=== PATIENT | male | born 1960 | race African-American/Black ===

== ENCOUNTER 2016-03-30 11:44 | Emergency (ER) | payer OTHER ==
[~2016-03-30] VITALS: Ht 180.3 cm; Wt 97.0 kg
[~2016-03-30 11:44] MED LIST: GLUCOMETER XX; GLUCOMTESTSTRIPS XX; GLUCTAB PO; OMEP20CA5 PO
[2016-03-30 11:47] VITALS: BP 129/84; PULSE 90; RESP 16; TEMP 98.3; O2SAT 98
[2016-03-30] MEDS ORDERED: METF1000 PO (12:44)
--- NOTE | 2016-03-30 12:51 | PD ---
HPI Chief Complaint: Medication Refill Request Time Seen by Provider: 12:44 Travel History International Travel<30 days: No Contact w/Intl Traveler<30days: No Traveled to known affect area: No History of Present Illness HPI 55-year-old male presents to the emergency room for medication refill of his metformin. Patient states he was diagnosed with diabetes one year ago and given a prescription for metformin which he was taking appropriately at first but then stopped because "sugars were controlled." Patient has been taking his sugars every morning and states they are generally between 120 and 180 but for the past week they have been elevated between 200 and 400. Patient began taking his metformin one week ago after realizing the increase in readings but states it hasn't seemed to help. He believes that is because it is . Prescription in Jul, 2015. [facility] for another 2 days. Patient was hoping he can get medication for the next 2 days until he can get [facility]. Reports polydipsia and polyuria. Denies fever, chills, nausea, vomiting, recent illness, weakness , changes in vision, or abdominal pain. PFSH Past Medical History Arthritis: Yes Autoimmune Disease: Yes Blood Disorders: No Cancer: No Cardiovascular Problems: No High Cholesterol: Yes Chemotherapy: No Diabetes: Yes (borderline) Diminished Hearing: No Endocrine: No Gastrointestinal Disorders: Yes Genitourinary: No Musculoskeletal: Yes Neurologic: No Psychiatric: No Respiratory: Yes Radiation Therapy: No Past Surgical History Abdominal Surgery: Yes (hernia) Other Surgery: Yes (HERNIA REPAIR) Social History Alcohol Use: No Tobacco Use: No Substance Use: No Allergies-Medications (Allergen,Severity, Reaction): Coded Allergies: North Korean Cheese (Verified Allergy, Severe, PT STATES ALLERGY TO CHEESE, 03/30/16) Quetiapine (Verified Adverse Reaction, Mild, penile erection , 03/30/16) Reported Meds & Prescriptions Reported Meds & Active Scripts Active Metformin (Metformin HCl) 1,000 Mg Tab 1,000 Mg PO Q12HR With meals Glucomteststrips 1 Box XX Glucometer 1 Kit XX Glucophage XR 24 HR (Metformin HCl) 500 Mg Tab 500 Mg PO BIDPC 30 Days Reported Prilosec 20 mg (Omeprazole) 20 Mg Capcr 1 Tab PO DAILY Review of Systems Except as stated in HPI: all other systems reviewed are Neg Physical Exam Narrative GENERAL: Well-nourished, well-developed male in no acute distress. Afebrile. Ambulatory. SKIN: Warm and dry. HEAD: Normocephalic. EYES: No scleral icterus. No injection or drainage. NECK: Supple, trachea midline. No JVD or lymphadenopathy. Data Data Last Documented VS Vital Signs Date Time Temp Pulse Resp B/P Pulse Ox O2 Delivery O2 Flow Rate FiO2 03/30/16 11:47 98.3 90 16 129/84 98 Room Air MDM Medical Decision Making Medical Screen Exam Complete: Yes Emergency Medical Condition: Yes Medical Record Reviewed: Yes Differential Diagnosis Hyperglycemia versus uncontrolled diabetes versus DKA versus medication refill Narrative Course 55-year-old male with history of diabetes presents to the emergency room requesting prescription for metformin. He has been noncompliant with metformin in the past. States he cannot get his prescription picked up for another 2 days but his sugars have been extremely high at home for the past week, between 200 and 400. Blood sugar here was 357. Patient is asymptomatic. I spoke to my attending physician, Dr. Arguelles, who recommends restarting metformin. He will be discharged with prescription for metformin and told to follow up as scheduled with his primary care physician in 2 days for reevaluation of chronic blood sugar management. Patient told to return sooner for worsening symptoms. He understands and agrees to this plan. Diagnosis Primary Impression: Hyperglycemia due to type 2 diabetes mellitus Qualified Code: E11.65 - Type 2 diabetes mellitus with hyperglycemia, without long-term current use of insulin Referrals: Primary Care Physician Patient Instructions: Diabetic Hyperglycemia (ED), General Instructions Additional Instructions: Rest and drink plenty of fluids. Take metformin as directed. Follow-up with a primary care physician for better control of chronic diabetes. Return to the emergency room for worsening symptoms. Med/Other Pt SpecificInfo: Prescription(s) given Scripts Metformin 1,000 Mg Tab1,000 Mg PO Q12HR #60 TAB Ref 0 With meals Prov:Vale Arguelles MD 03/30/16 Disposition: 01 DISCHARGE HOME Condition: Stable Coco Cordova Mar 30, 2016 12:51
== END 2016-03-30 13:10 | disposition home or self-care (01) ==
LOC: NEPB 11:44
DX: E11.65 Type 2 diabetes mellitus with hyperglycemia (principal); Z76.0 Encounter for issue of repeat prescription; Z79.84 Long term (current) use of oral hypoglycemic drugs; Z87.39 Personal history of other diseases of the musculoskeletal system and connective tissue; Z86.2 Personal history of diseases of the blood and blood-forming organs and certain disorders involving the immune mechanism; Z87.19 Personal history of other diseases of the digestive system; Z87.09 Personal history of other diseases of the respiratory system
CPT/HCPCS: 99281

== ENCOUNTER 2016-09-21 21:23 | Observation (INO) | payer OTHER ==
[~2016-09-21] VITALS: Ht 180.3 cm; Wt 100.0 kg
[~2016-09-21 21:23] MED LIST changes: +METF1000 PO
[2016-09-21 21:28] VITALS: BP 136/63; PULSE 84; RESP 16; TEMP 98.5; O2SAT 97
[2016-09-21 22:26] VITALS: BP 143/81; PULSE 84; RESP 16; O2SAT 96
[2016-09-21] MEDS ORDERED: SIMV5TAB3 PO (22:26)
[2016-09-21] MEDS ORDERED: GLIP5TAB8 PO (22:26)
[2016-09-21] MEDS ORDERED: SODIUM CHLORIDE 0.9% FLUSH 10 ML FLUSH IVF PRN (22:30)
[2016-09-21] MEDS ORDERED: ONDANSETRON HCL 4 MG/2 ML VIAL IV PUSH ONE (22:30)
[2016-09-21] MEDS ORDERED: ASPIRIN 81 MG CHEW TAB PO ONE (22:30)
[2016-09-21] MEDS ORDERED: SODIUM CHLORID 0.9% 500 ML INJ 500 ML IV ONE (22:30)
[2016-09-21] MEDS ORDERED: MORPHINE SULFATE 4 MG/ML INJ IV PUSH ONE (22:30)
[2016-09-21] MEDS ORDERED: NITROGLYCERIN 0.4 MG SL 25 TABS/BTL SL ONE (22:30)
--- NOTE | 2016-09-21 22:40 | RADRPT ---
EXAM DATE/TIME: 09/21/2016 22:34 [facility] COMPARISON: CHEST SINGLE AP, August 08, 2014, 17:52. INDICATIONS : Chest pain MEDICAL HISTORY : Diabetes mellitus type II. SURGICAL HISTORY : None. ENCOUNTER: Initial ACUITY: 1 day PAIN SCORE: 6/10 LOCATION: Bilateral chest FINDINGS: A single view of the chest demonstrates the lungs to be symmetrically aerated without evidence of mas s, infiltrate or effusion. The cardiomediastinal contours are unremarkable. Osseous structures are intact. CONCLUSION: No acute disease. Quan Sheriff MD on September 21, 2016 at 22:38 Board Certified Radiologist. This report was verified electronically.
[2016-09-21 22:42] LABS: AUTOMATED NEUTROPHIL # 2.8 TH/MM3 (1.8-7.7); BASOPHIL # 0.1 TH/MM3 (0-0.2); BASOPHIL % 1.1 % (0.0-2.0); EOSINOPHIL # 0.2 TH/MM3 (0-0.4); EOSINOPHIL % 2.5 % (0.0-4.0); HEMATOCRIT 42.9 % (39.0-51.0); HEMO FLAGS DIFF FINAL; LYMPH % 43.1 % (9.0-44.0); LYMPHOCYTE # 2.6 TH/MM3 (1.0-4.8); MEAN CELL VOLUME 79.4 FL (80.0-100.0); MEAN CORPUSCULAR HEMOGLOBIN 27.4 PG (27.0-34.0); MEAN CORPUSCULAR HGB CONC 34.5 % (32.0-36.0); MONO % 6.9 % (0.0-8.0); NEUT % 46.4 % (16.0-70.0); PLATELET COUNT 210 TH/MM3 (150-450); RED BLOOD COUNT 5.41 MIL/MM3 (4.50-5.90); RED CELL DISTRIBUTION WIDTH 14.5 % (11.6-17.2)
--- NOTE | 2016-09-21 22:44 | PD ---
HPI Chief Complaint: Chest Pain Time Seen by Provider: 22:16 Travel History International Travel<30 days: No Contact w/Intl Traveler<30days: No Traveled to known affect area: No History of Present Illness HPI The patient is a 56-year-old Karen male who presents to the emergency department for chest pain. The patient states he developed left-sided chest pain after he awakened this morning at 8 AM. The chest pain is left-sided, nonradiating, sharp, dull, aching, with mild shortness of breath. He denies any nausea, vomiting, or diaphoresis. He does note minimal shortness of breath. The patient also states he had 2 episodes of diarrhea this morning which has resolved and does not appear to be related to his chest pain. The patient does have a history of hyperlipidemia, diabetes, and borderline hypertension. The patient is followed at the [place] [facility]. He denies any previous history of CAD, previous stress test, or previous cardiac catheterization. He denies any exertional shortness of breath, however, does note recent fatigue over the last month. The patient denies any tobacco use or significant history for early family medical history for CAD. The patient denies any history of pulmonary embolism, DVT, recent lower extremity edema. He denies any recent hospitalizations or surgeries and last 3 months, does state he drove to [place] within the last 3 months. PFSH Past Medical History Arthritis: Yes Autoimmune Disease: Yes Blood Disorders: No Cancer: No Cardiovascular Problems: Yes High Cholesterol: Yes Chemotherapy: No Diabetes: Yes Patient Takes Glucophage: Yes Diminished Hearing: No Endocrine: No Gastrointestinal Disorders: Yes Genitourinary: No Musculoskeletal: Yes Neurologic: No Psychiatric: No Respiratory: Yes Radiation Therapy: No Schizophrenia: Yes (PARANOID SCHIZOPHRENIA) Tetanus Vaccination: < 5 Years Influenza Vaccination: Yes Past Surgical History Abdominal Surgery: Yes (HERNIA REPAIR) Other Surgery: Yes (HERNIA REPAIR) Social History Alcohol Use: No Tobacco Use: No Substance Use: No Allergies-Medications (Allergen,Severity, Reaction): Coded Allergies: Surinamese Cheese (Verified Allergy, Severe, PT STATES ALLERGY TO CHEESE, ) Quetiapine (Verified Adverse Reaction, Mild, penile erection , 09/21/16) Reported Meds & Prescriptions Reported Meds & Active Scripts Active Metformin (Metformin HCl) 1,000 Mg Tab 1,000 Mg PO Q12HR With meals Reported Glipizide 5 Mg Tab 5 Mg PO BIDAC Take 30 minutes before a meal Simvastatin 5 Mg Tab 5 Mg PO DAILY Review of Systems Except as stated in HPI: all other systems reviewed are Neg General / Constitutional: No: Fever HENT: No: Lightheadedness Cardiovascular: Positive: Chest Pain or Discomfort Respiratory: Positive: Shortness of Breath Gastrointestinal: Positive: Diarrhea, No: Nausea, Vomiting Musculoskeletal: No: Weakness, Edema Neurologic: No: Dizziness Physical Exam Narrative GENERAL: Awake, alert, pleasant 56-year-old male who appears his stated age is in no acute respiratory distress. SKIN: Focused skin assessment warm/dry. HEAD: Atraumatic. Normocephalic. EYES: No injection or drainage. ENT: No nasal bleeding or discharge. Mucous membranes pink and moist. NECK: Trachea midline. No JVD. CARDIOVASCULAR: Regular rate and rhythm. No murmur appreciated. RESPIRATORY: No accessory muscle use. Clear to auscultation. Breath sounds equal bilaterally. GASTROINTESTINAL: Abdomen soft, non-tender, nondistended. No rebound tenderness. MUSCULOSKELETAL: No obvious deformities. No clubbing. No cyanosis. No edema. NEUROLOGICAL: Awake and alert. No obvious cranial nerve deficits. Motor grossly within normal limits. Normal speech. Nonfocal. Oriented 4. Follows commands without difficulty. PSYCHIATRIC: Appropriate mood and affect; insight and judgment normal. Data Data Last Documented VS Vital Signs Date Time Temp Pulse Resp B/P Pulse Ox O2 Delivery O2 Flow Rate FiO2 09/21/16 22:26 84 16 143/81 96 Room Air 09/21/16 21:28 98.5 Orders Electrocardiogram (09/21/16 ) Electrocardiogram (09/21/16 22:23) Ckmb (Isoenzyme) Profile (09/21/16 22:23) Complete Blood Count With Diff (09/21/16 22:23) Comprehensive Metabolic Panel (09/21/16 22:23) Magnesium (Mg) (09/21/16 22:23) Prothrombin Time / Inr (Pt) (09/21/16 22:23) Act Partial Throm Time (Ptt) (09/21/16 22:23) Troponin I (09/21/16 22:23) Lipase (09/21/16 22:23) Chest, Single Ap (09/21/16 22:23) Ecg Monitoring (09/21/16 22:23) Bilateral Bp Monitoring (09/21/16 22:23) Iv Access Insert/Monitor (09/21/16 22:23) Oximetry (09/21/16 22:23) Oxygen Administration (09/21/16 22:23) Aspirin Chew (Aspirin Chew) (09/21/16 22:30) Morphine Inj (Morphine Inj) (09/21/16 22:30) Sodium Chloride 0.9% Flush (Ns Flush) (09/21/16 22:30) Nitroglycerin Sl (Nitrostat Sl) (09/21/16 22:30) Sodium Chlorid 0.9% 500 Ml Inj (Ns 500 M (09/21/16 22:30) Ondansetron Inj (Zofran Inj) (09/21/16 22:30) CKMB (09/21/16 22:30) CKMB% (09/21/16 22:30) Labs Laboratory Tests Test 09/21/16 22:30 White Blood Count 6.0 TH/MM3 Red Blood Count 5.41 MIL/MM3 Hemoglobin 14.8 GM/DL Hematocrit 42.9 % Mean Corpuscular Volume 79.4 FL Mean Corpuscular Hemoglobin 27.4 PG Mean Corpuscular Hemoglobin 34.5 % Concent Red Cell Distribution Width 14.5 % Platelet Count 210 TH/MM3 Mean Platelet Volume 8.9 FL Neutrophils (%) (Auto) 46.4 % Lymphocytes (%) (Auto) 43.1 % Monocytes (%) (Auto) 6.9 % Eosinophils (%) (Auto) 2.5 % Basophils (%) (Auto) 1.1 % Neutrophils # (Auto) 2.8 TH/MM3 Lymphocytes # (Auto) 2.6 TH/MM3 Monocytes # (Auto) 0.4 TH/MM3 Eosinophils # (Auto) 0.2 TH/MM3 Basophils # (Auto) 0.1 TH/MM3 CBC Comment DIFF FINAL Differential Comment Prothrombin Time 10.9 SEC Prothromb Time International 1.0 RATIO Ratio Activated Partial 24.7 SEC Thromboplast Time Sodium Level 142 MEQ/L Potassium Level 4.0 MEQ/L Chloride Level 105 MEQ/L Carbon Dioxide Level 31.2 MEQ/L Anion Gap 6 MEQ/L Blood Urea Nitrogen 15 MG/DL Creatinine 1.24 MG/DL Estimat Glomerular Filtration 74 ML/MIN Rate Random Glucose 78 MG/DL Calcium Level 9.2 MG/DL Magnesium Level 2.0 MG/DL Total Bilirubin 0.3 MG/DL Aspartate Amino Transf 19 U/L (AST/SGOT) Alanine Aminotransferase 33 U/L (ALT/SGPT) Alkaline Phosphatase 67 U/L Total Creatine Kinase 513 U/L Troponin I LESS THAN 0.02 NG/ML Total Protein 7.5 GM/DL Albumin 3.8 GM/DL Lipase 149 U/L MDM Medical Decision Making Medical Screen Exam Complete: Yes Emergency Medical Condition: Yes Medical Record Reviewed: Yes Interpretation(s) EKG reveals normal sinus rhythm with a rate 80. No ischemic changes or ectopy noted. Last Impressions Chest X-Ray 09/21/162222 Signed Impressions: Service Date/Time: Wednesday, September 21, 2016 22:34 - CONCLUSION: No acute disease. Quan Sheriff MD Laboratory Tests Test 09/21/16 22:30 White Blood Count 6.0 TH/MM3 Red Blood Count 5.41 MIL/MM3 Hemoglobin 14.8 GM/DL Hematocrit 42.9 % Mean Corpuscular Volume 79.4 FL Mean Corpuscular Hemoglobin 27.4 PG Mean Corpuscular Hemoglobin 34.5 % Concent Red Cell Distribution Width 14.5 % Platelet Count 210 TH/MM3 Mean Platelet Volume 8.9 FL Neutrophils (%) (Auto) 46.4 % Lymphocytes (%) (Auto) 43.1 % Monocytes (%) (Auto) 6.9 % Eosinophils (%) (Auto) 2.5 % Basophils (%) (Auto) 1.1 % Neutrophils # (Auto) 2.8 TH/MM3 Lymphocytes # (Auto) 2.6 TH/MM3 Monocytes # (Auto) 0.4 TH/MM3 Eosinophils # (Auto) 0.2 TH/MM3 Basophils # (Auto) 0.1 TH/MM3 CBC Comment DIFF FINAL Differential Comment Prothrombin Time 10.9 SEC Prothromb Time International 1.0 RATIO Ratio Activated Partial 24.7 SEC Thromboplast Time Sodium Level 142 MEQ/L Potassium Level 4.0 MEQ/L Chloride Level 105 MEQ/L Carbon Dioxide Level 31.2 MEQ/L Anion Gap 6 MEQ/L Blood Urea Nitrogen 15 MG/DL Creatinine 1.24 MG/DL Estimat Glomerular Filtration 74 ML/MIN Rate Random Glucose 78 MG/DL Calcium Level 9.2 MG/DL Magnesium Level 2.0 MG/DL Total Bilirubin 0.3 MG/DL Aspartate Amino Transf 19 U/L (AST/SGOT) Alanine Aminotransferase 33 U/L (ALT/SGPT) Alkaline Phosphatase 67 U/L Total Creatine Kinase 513 U/L Troponin I LESS THAN 0.02 NG/ML Total Protein 7.5 GM/DL Albumin 3.8 GM/DL Lipase 149 U/L Differential Diagnosis Differential diagnoses includes acute coronary syndrome, STEMI, pulmonary embolism, pleural effusion, GERD, esophageal spasm, muscular skeletal pain. Narrative Course IV was established, labs are drawn and sent, and the patient was placed on cardiac telemetry monitoring and continuous pulse oximetry monitoring. EKG was ordered and interpreted. The patient was administered aspirin, nitroglycerin sublingual, morphine, Zofran, and IV fluids. Chest x-ray was obtained. The patient's chest x-rays unremarkable. Initial troponin is negative. CPK is mildly elevated. Lipase is unremarkable. The patient will be 23 hour observation to the chest pain center for serial cardiac enzymes and further evaluation by cardiology for possible stress test. Patient is comfortable with this plan of care and disposition. Physician Communication Physician Communication The patient will be 23 hour observation to the chest pain Center for serial cardiac enzymes and further evaluation by cardiology. Diagnosis Primary Impression: Chest pain Qualified Code: R07.9 - Chest pain, unspecified type Condition: Stable Reggie Grimaldo MD Sep 21, 2016 22:44
[2016-09-21 23:01] LABS: APTT (PATIENT) 24.7 SEC (24.3-30.1); PROTHROMBIN TIME - PATIENT 10.9 SEC (9.8-11.6)
[2016-09-21 23:25] LABS: ALKALINE PHOSPHATASE 67 U/L (45-117); ALT (GPT) 33 U/L (12-78); ANION GAP 6 MEQ/L (5-15); AST (GOT) 19 U/L (15-37); BICARBONATE 31.2 MEQ/L (21.0-32.0); BLOOD UREA NITROGEN 15 MG/DL (7-18); CHLORIDE 105 MEQ/L (98-107); CREATINE KINASE 513 U/L (39-308); GLOMERULAR FILTRATION RATE 74 ML/MIN (>89); SODIUM (NA) 142 MEQ/L (136-145); TOTAL BILIRUBIN ADULT 0.3 MG/DL (0.2-1.0)
[2016-09-21 23:38] LABS: CKMB 1.6 NG/ML (0.5-3.6)
[2016-09-21] MEDS ORDERED: ACETAMINOPHEN/HYDROcodone 325 MG/7.5 MG TAB PO PRN (23:45)
[2016-09-21] MEDS ORDERED: ONDANSETRON HCL 4 MG/2 ML VIAL IV PRN (23:45)
[2016-09-21] MEDS ORDERED: MORPHINE SULFATE 4 MG/ML INJ IV PRN (23:45)
[2016-09-21] MEDS ORDERED: SODIUM CHLORIDE 0.9% FLUSH 10 ML FLUSH IV FLUSH PRN (23:45)
[2016-09-21] MEDS ORDERED: NITROGLYCERIN 0.4 MG SL 25 TABS/BTL SL PRN (23:45)
[2016-09-21] MEDS ORDERED: ACETAMINOPHEN 500 MG CPLT PO PRN (23:45)
[2016-09-22] VITALS (9 sets, daily range): BP systolic 95–138; BP diastolic 54–77; PULSE 67–92; RESP 16–18; TEMP 97.4–98; O2SAT 95–98
[2016-09-22 01:58] LABS: CREATINE KINASE 441 U/L (39-308)
[2016-09-22 02:10] LABS: CKMB 1.5 NG/ML (0.5-3.6)
[2016-09-22 05:55] LABS: CREATINE KINASE 425 U/L (39-308)
[2016-09-22 06:07] LABS: CKMB 1.2 NG/ML (0.5-3.6)
[2016-09-22] MEDS ORDERED: METF500T PO (08:55)
[2016-09-22] MEDS ORDERED: PRAVASTATIN SOD 10 MG TAB PO SCH (09:00)
[2016-09-22] MEDS ORDERED: GLUCAGON 1 MG/ML VIAL IM/SQ PRN (09:00)
[2016-09-22] MEDS ORDERED: DEXTROSE 50% IN WATER 50 ML VIAL(D50) IV PRN (09:00)
[2016-09-22] MEDS ORDERED: SODIUM CHLORIDE 0.9% FLUSH 10 ML FLUSH IV FLUSH SCH (09:00)
[2016-09-22] MEDS ORDERED: ASPIRIN 325 MG TAB PO SCH (09:00)
[2016-09-22] MEDS ORDERED: PANTOPRAZOLE SOD 40 MG DELAYED RELEASE TAB PO SCH (09:10)
--- NOTE | 2016-09-22 09:11 | HHI.DCPOC ---
Discharge Care Plan Diagnosis: (1) Chest pain (2) Hyperlipidemia (3) DM (diabetes mellitus) Goals to Promote Your Health * To prevent worsening of your condition and complications * To maintain your health at the optimal level Directions to Meet Your Goals Take your medications as prescribed Follow your dietary instruction Follow activity as directed Keep your appointments as scheduled Take your immunizations and boosters as scheduled If your symptoms worsen call your PCP, if no PCP go to Urgent Care Center or Emergency Room Smoking is Dangerous to Your Health. Avoid second hand smoke Call the 24-hour hour crisis hotline for domestic abuse at Beni Monterroso Sep 22, 2016 09:11
[2016-09-22] MEDS ORDERED: METOPROLOL TARTRATE 25 MG TAB PO SCH (09:15)
--- NOTE | 2016-09-22 09:40 | HHI.HP ---
HPI Primary Care Physician [facility] Chief Complaint Chest pain History of Present Illness This is a 56-year-old male that presents to the ED via private vehicle complaining of developing a chest discomfort yesterday that lasted all day long. He describes a numbness/sharp discomfort. Nothing would worsen or improve the symptoms. He had no associated shortness of breath, nausea, or diaphoresis. Denies history of coronary disease. States he is diabetic and takes cholesterol medicine. Denies hypertension. Denies recent illnesses. Denies fevers or chills. Review of Systems General: Patient denies fevers, chills recent, and recent travel HEENT: Patient denies headache, sore throat, difficulty swallowing. Cardiovascular: Has the chest discomfort as mentioned above. Denies sensation of heart beating rapidly or irregularly. No syncope. Denies diaphoresis. Respiratory: Denies shortness of breath or inspirational chest discomfort. Denies coughing wheezing or hemoptysis. GI: Patient denies nausea, vomiting, diarrhea, abdominal pain, bloody stools. Musculoskeletal: Patient denies joint pain or edema. Denies calf pain or edema. Neurovascular: Patient denies numbness, tingling, weakness in extremities. Denies headache. Endocrine: Denies polyuria and polydipsia. Hematologic: Denies easy bruising. Skin: Denies rash or itching. Past Family Social History Allergies: Coded Allergies: Cambodian Cheese (Verified Allergy, Severe, PT STATES ALLERGY TO CHEESE, ) Quetiapine (Verified Adverse Reaction, Mild, penile erection , 09/21/16) Past Medical History Diabetes and hyperlipidemia. Denies coronary disease and hypertension. Past Surgical History Hernia repair Reported Medications Reported Meds & Active Scripts Active Reported Metformin (Metformin HCl) 500 Mg Tab 500 Mg PO BIDPC With meals Glipizide 5 Mg Tab 5 Mg PO BIDAC Take 30 minutes before a meal Simvastatin 5 Mg Tab 5 Mg PO DAILY Active Ordered Medications Current Medications Medications (Trade) Dose Ordered Sig/Lynnette Route Start Time Stop Time Status Last Admin (NS Flush) 2 ml UNSCH PRN IV FLUSH 09/21/16 23:45 (NS Flush) 2 ml BID IV FLUSH 09/22/16 09:00 09/22/16 08:39 (Tylenol) 500 mg Q4H PRN PO 09/21/16 23:45 ([place] 7.5-325 Mg) 1 tab Q4H PRN PO 09/21/16 23:45 09/22/16 01:25 (Morphine Inj) 2 mg Q4H PRN IV 09/21/16 23:45 (Zofran Inj) 4 mg Q6H PRN IV 09/21/16 23:45 (Nitrostat Sl) 0.4 mg Q5M PRN SL 09/21/16 23:45 (Aspirin) 325 mg DAILY PO 09/22/16 09:00 09/22/16 08:39 (Pravachol) 10 mg DAILY PO 09/22/16 09:00 (D50w (Vial) Inj) 25 ml UNSCH PRN IV 09/22/16 09:00 (Glucagon Inj) 1 mg UNSCH PRN IM/SQ 09/22/16 09:00 Family History Denies family history of CAD. Social History Patient is a nonsmoker. Denies alcohol and illicit drug use. Physical Exam Vital Signs Vital Signs Date Time Temp Pulse Resp B/P Pulse Ox O2 Delivery O2 Flow Rate FiO2 09/22/16 07:21 98.0 73 18 133/77 98 09/22/16 04:49 69 09/22/16 04:25 97.4 67 16 95/54 97 09/22/16 01:30 82 09/22/16 01:10 97.5 72 18 138/70 95 09/22/16 00:33 96 09/22/16 00:00 82 16 127/71 97 Room Air 09/21/16 22:26 84 16 143/81 96 Room Air 09/21/16 21:28 98.5 84 16 136/63 97 Room Air Physical Exam GENERAL: This is a well-nourished, well-developed patient, in no apparent distress. Patient speaks in clear complete sentences. Patient is pleasant. HEENT: Head is atraumatic and normocephalic. Neck is supple without lymphadenopathy and trachea is midline. No JVD or carotid bruits. CARDIOVASCULAR: Regular rate and rhythm without murmurs, gallops, or rubs. RESPIRATORY: Clear to auscultation. Breath sounds equal bilaterally. No wheezes , rales, or rhonchi. Chest wall is nontender. No use of accessory muscles. GASTROINTESTINAL: Abdomen is nontender, nondistended. Abdomen soft. No obvious pulsatile mass or bruit. No CVA tenderness. Strong femoral pulses bilaterally. Normal bowel sounds in all quadrants. MUSCULOSKELETAL: Patient is moving upper and lower extremities freely. No calf tenderness or edema, no Homans sign. Strong pulses in upper and lower extremities. NEUROLOGICAL: Patient is alert and oriented. Cranial nerves 2-12 are grossly intact. No focal deficits and speech is clear. SKIN: No rash and turgor is normal. Laboratory Laboratory Tests Test 09/21/16 09/22/16 09/22/16 22:30 01:25 04:10 White Blood Count 6.0 Red Blood Count 5.41 Hemoglobin 14.8 Hematocrit 42.9 Mean Corpuscular Volume 79.4 Mean Corpuscular Hemoglobin 27.4 Mean Corpuscular Hemoglobin 34.5 Concent Red Cell Distribution Width 14.5 Platelet Count 210 Mean Platelet Volume 8.9 Neutrophils (%) (Auto) 46.4 Lymphocytes (%) (Auto) 43.1 Monocytes (%) (Auto) 6.9 Eosinophils (%) (Auto) 2.5 Basophils (%) (Auto) 1.1 Neutrophils # (Auto) 2.8 Lymphocytes # (Auto) 2.6 Monocytes # (Auto) 0.4 Eosinophils # (Auto) 0.2 Basophils # (Auto) 0.1 CBC Comment DIFF FINAL Differential Comment Prothrombin Time 10.9 Prothromb Time International 1.0 Ratio Activated Partial 24.7 Thromboplast Time Sodium Level 142 Potassium Level 4.0 Chloride Level 105 Carbon Dioxide Level 31.2 Anion Gap 6 Blood Urea Nitrogen 15 Creatinine 1.24 Estimat Glomerular Filtration 74 Rate Random Glucose 78 Calcium Level 9.2 Magnesium Level 2.0 Total Bilirubin 0.3 Aspartate Amino Transf 19 (AST/SGOT) Alanine Aminotransferase 33 (ALT/SGPT) Alkaline Phosphatase 67 Total Creatine Kinase 513 441 425 Creatine Kinase MB 1.6 1.5 1.2 Creatine Kinase MB % 0.3 0.3 0.3 Troponin I LESS THAN 0.02 LESS THAN 0.02 LESS THAN 0.02 Total Protein 7.5 Albumin 3.8 Lipase 149 Result Diagram: 09/21/16222909/21/162229 Imaging Last 48 hours Impressions Chest X-Ray 09/21/162222 Signed Impressions: Service Date/Time: Wednesday, September 21, 2016 22:34 - CONCLUSION: No acute disease. Quan Sheriff MD Course EKGs have sinus rhythm without significant ST segment depressions or elevations. Assessment and Plan Assessment and Plan * Chest pain: His discomfort is atypical. He had serial cardiac enzymes and EKGs for ruling out purposes. He has been seen by Dr. Fawad Borges of cardiology in the chest pain center and will undergo a Ifeanyi protocol ETT. He' ll be discharged home if the stress test is nonischemic. He should follow-up with his physician. * Hyperlipidemia: Continue current medication. * Diabetes: Continues medication and follow diabetic diet. He should discuss being on an ABIGAIL inhibitor with his physician for renal protection. Patient is stable at this time. He is agreeable to this plan. Beni Monterroso Sep 22, 2016 09:40
[2016-09-22] MEDS ORDERED: INSULIN ASPART SUPPLEMENTAL SCALE SQ SCH (11:00)
--- NOTE | 2016-09-23 18:47 | TR ---
Date Performed: 09/22/2016 Time Performed: 08:03:25 DOCTOR: Nancy Solomon DRUG LIST: CLINICAL HISTORY: REASON FOR TEST: REASON FOR ENDING: OBSERVATION: CONCLUSION: STELLA PROTOCOL. NO CP. TEST STOPPED AFTER EXCEEDING GOAL HR SECONDARY TO SOB AND LEG FATIGUE.Maximum RN=780 % Max HR Achieved=96.0% Maximum WK=041/78 Total Exercise Time=8:54 COMMENTS:
--- NOTE | 2016-09-23 18:47 | EKG ---
Date Performed: 09/22/2016 Time Performed: 04:18:43 PTAGE: 56 years EKG: Sinus rhythm NORMAL ECG Since PREVIOUS TRACING , no significant change noted PREVIOUS TRACIN09/22/2016 01.21 DOCTOR: Nancy Solomon Interpretating Date/Time 09/23/2016 18:47:24
--- NOTE | 2016-09-23 18:48 | EKG ---
Date Performed: 09/22/2016 Time Performed: 01:21:48 PTAGE: 56 years EKG: Sinus rhythm NORMAL ECG Since PREVIOUS TRACING , no significant change noted PREVIOUS TRACIN09/21/2016 21.38 DOCTOR: Nancy Solomon Interpretating Date/Time 09/23/2016 18:47:45
--- NOTE | 2016-09-23 18:48 | EKG ---
Date Performed: 09/21/2016 Time Performed: 21:38:27 PTAGE: 56 years EKG: Sinus rhythm NORMAL ECG Since PREVIOUS TRACING , no significant change noted PREVIOUS TRACIN08/08/2014 19.30 DOCTOR: Nancy Solomon Interpretating Date/Time 09/23/2016 18:47:33
== END 2016-09-22 09:56 | disposition home or self-care (01) ==
LOC: NEPE 21:23 → NEDA 23:42 → NEPHCDU 09-22 00:55
PROVIDERS: ADMIT Family Medicine; ATTEND Family Medicine
DX: R07.89 Other chest pain (principal); E78.5 Hyperlipidemia, unspecified; E11.9 Type 2 diabetes mellitus without complications; R20.0 Anesthesia of skin; R19.7 Diarrhea, unspecified; R06.02 Shortness of breath; R03.0 Elevated blood-pressure reading, without diagnosis of hypertension; R53.83 Other fatigue; E78.00 Pure hypercholesterolemia, unspecified; F20.0 Paranoid schizophrenia; M19.90 Unspecified osteoarthritis, unspecified site; Z79.899 Other long term (current) drug therapy; Z79.84 Long term (current) use of oral hypoglycemic drugs
CPT/HCPCS: 71010; 80053; 82550; 82552; 82948; 83690; 83735; 84484; 85025; 85610; 85730; 93005; 93017; 96374; 96375; 99285; G0378; J2270; J2405; J7040